=== PATIENT | male | born 1985 | race African-American/Black ===

== ENCOUNTER 2018-12-18 19:18 | Emergency (ER) | payer SELFPAY ==
[2018-12-18] MEDS ORDERED: ASPIRIN 81 MG TABLET, CHEWABLE PO ONE (19:57)
--- NOTE | 2018-12-18 20:01 | ER Document Report ---
ED Medical Screen (RME) - General Chief Complaint: Dizziness Stated Complaint: LIGHT HEADED/NECK PAIN Time Seen by Provider: 12/18/18 19:56 Primary Care Provider: GUANACO BENDER MD [Primary Care Provider] - Follow up as needed Mode of Arrival: Ambulatory Information source: Patient Notes: 32-year-old male presented to ED for complaint of headache chest pain. He states he was in [employer] about 7 PM when he had sudden burning in the neck that went around to his left jaw became very anxious sweaty dizzy had chest pain. He states he felt like he had to get outside right then. He got outside and was able to get himself home. He states he sat down and tried to rest relax and then he had a sudden severe headache, and so he came to the emergency room. He states he only has a headache at this time. He states he is never had an episode that happened like it did tonight. He does have a history of high blood pressure. He states he drinks on the weekends no cigarettes and no illicit drugs. I have greeted and performed a rapid initial assessment of this patient. A comprehensive ED assessment and evaluation of the patient, analysis of test results and completion of medical decision making process will be conducted by an additional ED providers. - Related Data Allergies/Adverse Reactions: No Known Allergies Allergy (Unverified 02/18/11 16:19) Physical Exam - Vital signs Vitals: Temp Pulse Resp BP Pulse Ox 98.2 F 83 18 179/123 H 98 12/18/18 19:32 12/18/18 19:32 12/18/18 19:32 12/18/18 19:32 12/18/18 19:32 Course - Vital Signs Vital signs: Temp Pulse Resp BP Pulse Ox 98.2 F 83 18 179/123 H 98 12/18/18 19:32 12/18/18 19:32 12/18/18 19:32 12/18/18 19:32 12/18/18 19:32 Doctor's Discharge - Discharge Referrals: GUANACO BENDER MD [Primary Care Provider] - Follow up as needed
--- NOTE | 2018-12-18 20:41 | RADIOLOGY REPORT (SQ) ---
EXAM DESCRIPTION: XR CHEST 2 VIEWS COMPLETED DATE/TME: 12/18/2018 19:57 CLINICAL HISTORY: 32 years, Male, chest pain COMPARISON: EXAM DESCRIPTION: CLINICAL HISTORY: chest pain COMPARISON: None. FINDINGS: Two views of the chest are submitted. Cardiac silhouette appears normal. No focal parenchymal or pleural disease. No acute bony abnormality. There is no significant pulmonary vascular engorgement. IMPRESSION: No evidence of acute cardiopulmonary disease. NUMBER OF VIEWS: TECHNIQUE: LIMITATIONS: None. FINDINGS: IMPRESSION: copyright 2010 [employer]- All Rights Reserved
[2018-12-18 20:42] LABS: ABSOLUTE EOSINOPHILS # (AUTO) 0.1 10^3/uL (0.0-0.6); ABSOLUTE LYMPHOCYTES (AUTO) 2.7 10^3/uL (0.5-4.7); ABSOLUTE MONOCYTES (AUTO) 0.8 10^3/uL (0.1-1.4); ABSOLUTE NEUT (AUTO) 5.6 10^3/uL (1.7-8.2); BASOPHILS % (AUTO) 0.5 % (0-2); EOSINOPHILS % (AUTO) 1.4 % (0-6); HEMATOCRIT 45.9 % (37.9-51.0); LYMPHOCYTES % (AUTO) 29.3 % (13-45); MEAN CORPUSCULAR HEMOGLOBIN 29.5 pg (27.0-33.4); MEAN CORPUSCULAR HGB CONC 32.7 g/dL (32.0-36.0); MEAN CORPUSCULAR VOLUME 90 fl (80-97); MONOCYTES % (AUTO) 8.9 % (3-13); PLATELET COUNT 293 10^3/uL (150-450); RED CELL DISTRIBUTION WIDTH 14.8 % (11.5-14.0); SEGMENTED NEUTROPHILS % (AUTO) 59.9 % (42-78); TOTAL CELLS COUNTED % (AUTO) 100 %; WHITE BLOOD COUNT 9.4 10^3/uL (4.0-10.5)
[2018-12-18 20:50] LABS: INTERNATIONAL RATION (INR) 0.96; PROTHROMBIN TIME 12.8 SEC (11.4-15.4)
[2018-12-18 20:51] LABS: PARTIAL THROMBOPLASTIN TIME 30.9 SEC (23.5-35.8)
[2018-12-18] MEDS ORDERED: ACETAMINOPHEN 325 MG TABLET PO ONE (21:01)
[2018-12-18 21:04] LABS: ALBUMIN 4.7 g/dL (3.5-5.0); ALKALINE PHOSPHATASE 70 U/L (38-126); ANION GAP 13 (5-19); ASPARTATE AMINO TRANSFERASE 33 U/L (17-59); BILIRUBIN,DIRECT 0.1 mg/dL (0.0-0.4); BILIRUBIN,TOTAL 0.5 mg/dL (0.2-1.3); BLOOD UREA NITROGEN 17 mg/dL (7-20); CALCIUM 10.3 mg/dL (8.4-10.2); CARBON DIOXIDE 24 mmol/L (22-30); CHLORIDE 107 mmol/L (98-107); CREATINE KINASE 600 U/L (55-170); GLUCOSE 104 mg/dL (75-110); POTASSIUM 4.3 mmol/L (3.6-5.0); TOTAL PROTEIN 7.9 g/dL (6.3-8.2)
--- NOTE | 2018-12-18 21:15 | ER Document Report ---
ED General - General Chief Complaint: Chest Pain Stated Complaint: LIGHT HEADED/NECK PAIN Time Seen by Provider: 12/18/18 19:56 Primary Care Provider: GUANACO BENDER MD [ACTIVE STAFF] - Follow up as needed Mode of Arrival: Ambulatory Information source: Patient Notes: 32-year-old male with hypertension, hyperlipidemia, obesity presents after an episode of neck burning, palpitations, lightheadedness that occurred approximately 2 hours prior to arrival while shopping at [employer]. Patient states that he developed a burning sensation starting on the right side of his neck wrapping around to the left side. He then developed palpitations and intermittent sharp pain in his chest. Denies any associated shortness of breath, diaphoresis, nausea but does admit to feeling lightheaded. Denies prior similar symptoms. Does report a stress test within the last 2 years that he assumes to have been negative. Patient does smoke 2 to 3 cigarettes/day. TRAVEL OUTSIDE OF THE [place] IN LAST 30 DAYS: Yes - HPI Onset: This evening Onset/Duration: Sudden, Gone Quality of pain: Burning, Sharp Severity: Moderate Associated symptoms: Chest pain, Headache, Other - Neck pain, lightheadedness. denies: Fever, Nausea, Vomiting, Shortness of breath Exacerbated by: Denies Relieved by: Denies Similar symptoms previously: Yes Recently seen / treated by doctor: No - Related Data Allergies/Adverse Reactions: No Known Allergies Allergy (Unverified 02/18/11 16:19) Past Medical History - General Information source: Patient - Social History Smoking Status: Current Some Day Smoker Cigarette use (# per day): Yes - 2 Smoking Education Provided: Yes - Smoking cessation counseling was provided for 4 minutes at the bedside Frequency of alcohol use: Occasional Drug Abuse: None Lives with: Family Family History: Reviewed & Not Pertinent Patient has suicidal ideation: No Patient has homicidal ideation: No - Past Medical History Cardiac Medical History: Reports: Hx Hypercholesterolemia, Hx Hypertension Review of Systems - Review of Systems Notes: REVIEW OF SYSTEMS: CONSTITUTIONAL : Denies fever, chills, or sweats. Denies recent illness. Denies weight loss, recent hospitalizations. EENT: Denies visual changes, eye pain. Denies sore throat, oral lesions, difficulty swallowing. CARDIOVASCULAR: + chest pain. + palpitations. Denies lower extremity edema. RESPIRATORY: Denies cough. Denies shortness of breath, wheezing. GASTROINTESTINAL: Denies abdominal pain or distention. Denies nausea, vomiting, or diarrhea. Denies blood in vomitus, stools, or per rectum. Denies black, tarry stools. Denies constipation. GENITOURINARY: Denies difficulty urinating, painful urination, frequency, blood in urine, testicular pain or penile discharge. MUSCULOSKELETAL: Denies back or neck pain or stiffness. Denies joint pain or swelling. SKIN: Denies rash, lesions or sores. HEMATOLOGIC : Denies easy bruising or bleeding. LYMPHATIC: Denies swollen glands. NEUROLOGICAL: Denies confusion or altered mental status. Denies loss of consciousness. Denies dizziness . Denies weakness or paralysis. Denies problems difficulty with ambulation, slurred speech. Denies sensory loss, numbness, or tingling. Denies seizures. PSYCHIATRIC: Denies anxiety or stress. Denies depression, suicidal ideation, or Physical Exam - Vital signs Vitals: Temp Pulse Resp BP Pulse Ox 98.2 F 83 18 179/123 H 98 12/18/18 19:32 12/18/18 19:32 12/18/18 19:32 12/18/18 19:32 12/18/18 19:32 - Notes Notes: PHYSICAL EXAMINATION: GENERAL: Well-appearing, well-nourished and in no acute distress. HEAD: Atraumatic, normocephalic. EYES: Pupils equal round and reactive to light, extraocular movements intact, sclera anicteric, conjunctiva are normal. ENT: Nares patent, oropharynx clear without exudates. Moist mucous membranes. NECK: Normal range of motion, supple without lymphadenopathy LUNGS: Breath sounds clear to auscultation bilaterally and equal. No wheezes rales or rhonchi. HEART: Regular rate and rhythm without murmurs ABDOMEN: Soft, nontender, nondistended abdomen. No guarding, no rebound. No masses appreciated. Musculoskeletal: Normal range of motion, no pitting or edema. No cyanosis. NEUROLOGICAL: Cranial nerves grossly intact. Normal speech, normal gait. Normal sensory, motor exams PSYCH: Normal mood, normal affect. SKIN: Warm, Dry, normal turgor, no rashes or lesions noted. Course - Re-evaluation Re-evalutation: 12/18/18 21:27 Laboratory 12/18/18 12/18/18 12/18/18 20:25 20:25 20:25 WBC 9.4 RBC 5.10 Hgb 15.0 Hct 45.9 MCV 90 MCH 29.5 MCHC 32.7 RDW 14.8 H Plt Count 293 Lymph % (Auto) 29.3 [place] % (Auto) 8.9 Eos % (Auto) 1.4 Baso % (Auto) 0.5 Absolute Neuts (auto) 5.6 Absolute Lymphs (auto) 2.7 Absolute Monos (auto) 0.8 Absolute Eos (auto) 0.1 Absolute Basos (auto) 0.0 Seg Neutrophils % 59.9 PT 12.8 INR 0.96 APTT 30.9 Sodium 144.1 Potassium 4.3 Chloride 107 Carbon Dioxide 24 Anion Gap 13 BUN 17 Creatinine 1.00 Est GFR ( Amer) > 60 Est GFR (MDRD) Non-Af > 60 Glucose 104 Calcium 10.3 H Magnesium 1.7 Total Bilirubin 0.5 Direct Bilirubin 0.1 Neonat Total Bilirubin Not Reportable Neonat Direct Bilirubin Not Reportable Neonat Indirect Bili Not Reportable AST 33 ALT 38 Alkaline Phosphatase 70 Creatine Kinase 600 H CK-MB (CK-2) Troponin I NT-Pro-B Natriuret Pep Total Protein 7.9 Albumin 4.7 12/18/18 20:25 WBC RBC Hgb Hct MCV MCH MCHC RDW Plt Count Lymph % (Auto) [place] % (Auto) Eos % (Auto) Baso % (Auto) Absolute Neuts (auto) Absolute Lymphs (auto) Absolute Monos (auto) Absolute Eos (auto) Absolute Basos (auto) Seg Neutrophils % PT INR APTT Sodium Potassium Chloride Carbon Dioxide Anion Gap BUN Creatinine Est GFR ( Amer) Est GFR (MDRD) Non-Af Glucose Calcium Magnesium Total Bilirubin Direct Bilirubin Neonat Total Bilirubin Neonat Direct Bilirubin Neonat Indirect Bili AST ALT Alkaline Phosphatase Creatine Kinase CK-MB (CK-2) 1.50 Troponin I < 0.012 NT-Pro-B Natriuret Pep < 11 Total Protein Albumin Chest X-Ray 12/18/18 19:57 IMPRESSION: No evidence of acute cardiopulmonary disease. NUMBER OF VIEWS: TECHNIQUE: LIMITATIONS: None. FINDINGS: IMPRESSION: copyright 2010 [employer]- All Rights Reserved Temp Pulse Resp BP Pulse Ox 98.2 F 83 23 H 176/103 H 97 12/18/18 19:32 12/18/18 19:32 12/18/18 20:31 12/18/18 21:01 12/18/18 21:01 12/19/18 00:01 Presentation of chest pain in an otherwise well appearing patient. Low clinical suspicion for ACS given clinical history, exam, EKG without ST elevations or depressions, and negative initial troponin. HEART score less than or equal to 3. PE also seems unlikely given clinical history, absence of tachycardia or dyspnea. Patient is PERC criteria negative. CXR without evidence of pneumothorax or pneumonia. No widened mediastinum. Aortic dissection also seems unlikely given history, symmetric pulses, CXR, and vitals. HEART Score: History-0 ECG-0 Age-0 Risk Factors-2 Troponin-0 Total: 2 Chest pain in a patient without evidence of cardiac or other serious etiology on workup today. I discussed with patient that, based on their age, risk factors and emergency department testing today, the likelihood that their symptoms are related to a heart attack is very low (estimated risk of heart attack or over the next 30 days of less than 1%). The patient demonstrates decision making capacity and has verbalized an understanding of these risks to me. Based on this, the patient has chosen to follow-up as an outpatient. Usual chest pain return precautions reviewed. The patient states understanding and agreement with this plan. - Vital Signs Vital signs: Temp Pulse Resp BP Pulse Ox 98.2 F 83 20 154/96 H 98 12/18/18 19:32 12/18/18 19:32 12/18/18 23:31 12/18/18 23:31 12/18/18 23:31 - Laboratory Result Diagrams: 12/18/18 20:25 12/18/18 20:25 Laboratory results interpreted by me: 12/18/18 12/18/18 20:25 20:25 RDW 14.8 H Calcium 10.3 H Creatine Kinase 600 H - Diagnostic Test Radiology reviewed: Image reviewed, Reports reviewed - EKG Interpretation by Me EKG shows normal: Sinus rhythm Rate: Normal Rhythm: NSR When compared to previous EKG there are: Previous EKG unavailable Discharge - Discharge Clinical Impression: Neck pain Chest pain Qualifiers: Chest pain type: unspecified Qualified Code(s): R07.9 - Chest pain, unspecified Condition: Good Disposition: HOME, SELF-CARE Instructions: Chest Pain of Unclear Cause ([facility]), Dizziness ([facility]) Additional Instructions: You were seen today for chest pain. The exact cause of your pain is unclear. However, based on your cardiac enzyme testing, chest x-ray, and EKG it does not appear that it is from an immediately life-threatening cause at this time. Although your testing here is normal is critical that you follow-up with your primary care physician for continued evaluation of this chest pain and possible stress testing. I recommended you see your physician within the next 24-48 hours to be evaluated for consideration of a stress test. Please return to emergency department immediately if you have worsening of your chest pain, shortness of breath, vomiting, become unable to exert yourself due to pain or difficulty breathing, you pass out, or have any pain that radiates into your arms, jaw, or back. Please also return if you have any additional symptoms that are concerning to you. Regarding Blood Pressure: Your blood pressure was noted to be greater than 120/80 at least once in the emergency room today. It is recommended that you follow-up with her primary care physician in the next week for repeat blood pressure check. The Centers for Medicare and Medicaid Services has specific recommendations regarding a person's blood pressure. There are several lifestyle modifications that are recommended in order to help lower your blood pressure. These include: Quitting smoking if you smoke. Reducing the amount of sodium in your diet. Getting regular exercise Limiting alcohol to no more than 2 drinks a day for men and one drink a day for women. Eating a healthy diet, including more fruits and vegetables, low fat dairy products, less saturated and total fat. Losing weight if you are overweight. FOLLOW-UP: Call your doctor's office and let them know your blood pressure was elevated and you were advised to get your blood pressure checked in the above time-line. If you are unable to get into your doctor's office in this time period, you can follow-up with a new physician (I have left the numbers below for a few primary care doctors affiliated with this [place] [facility]) or return to the ER. PRIMARY CARE PHYSICIANS: Dr. Geovani Pate [address], [place] [address] [phone] Dr Quintana Address: [address] , [place] [address] Dr Gal[address] Address: [address] [place] [address] Forms: Elevated Blood Pressure, Smoking Cessation Education, Return to Work Referrals: GUANACO BENDER MD [ACTIVE STAFF] - Follow up tomorrow
[2018-12-18 21:18] LABS: NT PRO BNP < 11 pg/mL (<125); TROPONIN I < 0.012 ng/mL
[2018-12-18] MEDS: NORMAL SALINE 1000 ML 1,000 ML IV PRN ×2 (21:25→22:26)
[2018-12-18] MEDS ORDERED: CLONIDINE HCL 0.2 MG TABLET PO ONE (21:27)
[2018-12-19 00:14] VITALS: BP 156/94
--- NOTE | 2018-12-19 02:18 | EKG REPORT ---
SEVERITY:- ABNORMAL ECG - SINUS ARRHYTHMIA, RATE 62-93 NONSPECIFIC T ABNORMALITIES, INFERIOR LEADS : Confirmed by: Krystal Aguirre 19-Dec-2018 02:17:42
--- NOTE | 2018-12-19 02:18 | EKG REPORT ---
SEVERITY:- BORDERLINE ECG - SINUS RHYTHM BORDERLINE T ABNORMALITIES, DIFFUSE LEADS BORDERLINE PROLONGED QT INTERVAL : Confirmed by: Krystal Aguirre 19-Dec-2018 02:17:33
== END 2018-12-19 00:14 | disposition home or self-care (01) ==
LOC: ER 19:18
DX: M54.2 Cervicalgia (principal); R07.9 Chest pain, unspecified; R51 Headache; F17.210 Nicotine dependence, cigarettes, uncomplicated; E78.00 Pure hypercholesterolemia, unspecified; I10 Essential (primary) hypertension
CPT/HCPCS: 93005; 36415; 82553; 82550; 83735; 84443; 85025; 85610; 85730; 80053; 84484; 83880; 71046; 93010; J7030; 96360; 96361; 99284

== ENCOUNTER 2019-02-25 17:24 | Emergency (ER) | payer SELFPAY ==
[2019-02-25] MEDS ORDERED: LIDOCAINE 2% VISCOUS SOLN 20 ML UDCUP PO ONE (17:55)
[2019-02-25] MEDS ORDERED: AMLODIPINE BESYLATE 10 MG TABLET PO ONE (17:58)
[2019-02-25 18:00] VITALS: BP 192/122
--- NOTE | 2019-02-25 18:00 | ER Document Report ---
HPI - HPI Time Seen by Provider: 02/25/19 17:54 Pain Level: 5 Notes: Patient is a 33-year-old male with history of hypertension (he did not take his medicines today) who presents complaining of left lower dental pain to #18 for the past month, but increased today. He has not noticed any obvious abscess or purulent discharge. Patient states that he is still able to eat and drink, but does have a decreased p.o. intake due to the pain. He has tried some [id number] meds with minimal relief. No other concerns or complaints. Denies any headache, fever, head injury, neck pain, hoarseness, drooling, URI, sore throat, chest pain, palpitations, syncope, cough, shortness of breath, wheeze, dyspnea, abdominal pain, nausea/vomiting/diarrhea, urinary retention, dysuria, hematuria, or rash. - ROS Systems Reviewed and Negative: Yes All other systems reviewed and negative - REPRODUCTIVE Reproductive: DENIES: : Past Medical History - Social History Smoking Status: Never Smoker Chew tobacco use (# tins/day): No Frequency of alcohol use: Social Drug Abuse: None Family History: Reviewed & Not Pertinent Patient has suicidal ideation: No Patient has homicidal ideation: No - Past Medical History Cardiac Medical History: Reports: Hx Hypercholesterolemia, Hx Hypertension Vertical Provider Document - CONSTITUTIONAL Agree With Documented VS: Yes Notes: PHYSICAL EXAMINATION: GENERAL: Well-appearing, well-nourished and in no acute distress. HEAD: Atraumatic, normocephalic. EYES: Pupils equal round and reactive to light, extraocular movements intact, sclera anicteric, conjunctiva are normal. ENT: Nares patent and without discharge. oropharynx clear without exudates. No tonsilar hypertrophy or erythema. Moist mucous membranes. No sinus tenderness. Uvula midline. No palatine shift. No tongue protrusion. No respiratory compromise. Mouth: Poor dentition. + mild decay and mild gingivitis. No obvious abscess or discharge noted. No facial swelling. + tenderness to tooth #18. NECK: Normal range of motion, supple without lymphadenopathy. No rigidity/meningismus. LUNGS: Breath sounds clear to auscultation bilaterally and equal. No wheezes rales or rhonchi. HEART: Regular rate and rhythm without murmurs, rubs, gallops. NEUROLOGICAL: Cranial nerves grossly intact. Normal speech, normal gait. PSYCH: Normal mood, normal affect. SKIN: Warm, Dry, normal turgor, no rashes or lesions noted. - INFECTION CONTROL TRAVEL OUTSIDE OF THE [place] IN LAST 30 DAYS: No Course - Re-evaluation Re-evalutation: 02/25/19 17:59 Patient is an afebrile, well-hydrated, 33-year-old male who presents to the ED with dental pain, suspect nerve root etiology versus infection. Vitals are acceptable. PE is otherwise unremarkable. No I&D, labs, or imaging warranted at this time based on H&P. Viscous lidocaine dispensed today. I will send him home with a prescription for penicillin. I did give him a dose of his amlodipine today. He otherwise does not have any chest pain, shortness of breath, or dyspnea on exertion. He has not had any headache nor any dysuria. Low suspicion for any meningitis, sepsis, peritonsillar/pharyngeal abscess, respiratory compromise, John's, temporal arteritis, or other emergent systemic condition at this time. Patient is aware this condition can change from initial presentation and he needs to monitor symptoms closely. Conservative measures otherwise for symptoms. Call to schedule an appointment with a dentist for further evaluation and management. Recheck with your PCM this week as well. Return to the ED with any worsening/concerning symptoms otherwise as reviewed in discharge. Patient is in agreement. Discharge - Discharge Clinical Impression: Pain, dental Condition: Stable Disposition: HOME, SELF-CARE Instructions: Penicillin V K ([facility]), Toothache ([facility]) Additional Instructions: Daniel and floss twice daily Maintain fluid intake Take antibiotics as directed Mouthwash, salt water gargles, peroxide rinse as needed Tylenol/ibuprofen as needed Recheck with PCM this week Call and schedule an appointment with your dentist for further evaluation Return to the ED with any worsening symptoms and/or development of fever, headache, facial swelling, swelling of lips/tongue/throat, trouble swallowing, drooling, hoarseness, neck pain/stiffness, chest pain, palpitations, syncope, shortness of breath, trouble breathing, abdominal pain, n/v/d, numbness/tingling, or other worsening symptoms that are concerning to you. Prescriptions: Penicillin V Potassium [Penicillin Vk 250 mg Tablet] 500 mg PO BID #40 tablet Forms: Elevated Blood Pressure Referrals: [facility] [Provider Group] - Follow up as needed
== END 2019-02-25 18:34 | disposition home or self-care (01) ==
LOC: ER 17:24
DX: K08.89 Other specified disorders of teeth and supporting structures (principal); R63.0 Anorexia; I10 Essential (primary) hypertension
CPT/HCPCS: 99282; J3490

== ENCOUNTER → 2019-03-30 | Outpatient (CLI) | payer OTHER ==
[2019-03-30 11:30] LABS: ABSOLUTE BASOPHILS # (AUTO) 0.1 10^3/uL (0.0-0.2); ABSOLUTE EOSINOPHILS # (AUTO) 0.1 10^3/uL (0.0-0.6); ABSOLUTE LYMPHOCYTES (AUTO) 2.4 10^3/uL (0.5-4.7); ABSOLUTE MONOCYTES (AUTO) 0.5 10^3/uL (0.1-1.4); ABSOLUTE NEUT (AUTO) 3.8 10^3/uL (1.7-8.2); BASOPHILS % (AUTO) 0.8 % (0-2); EOSINOPHILS % (AUTO) 1.4 % (0-6); HEMATOCRIT 43.2 % (37.9-51.0); HEMOGLOBIN 14.3 g/dL (13.5-17.0); LYMPHOCYTES % (AUTO) 35.5 % (13-45); MEAN CORPUSCULAR HEMOGLOBIN 29.8 pg (27.0-33.4); MEAN CORPUSCULAR VOLUME 90 fl (80-97); MONOCYTES % (AUTO) 7.3 % (3-13); PLATELET COUNT 249 10^3/uL (150-450); RED BLOOD COUNT 4.79 10^6/uL (4.35-5.55); RED CELL DISTRIBUTION WIDTH 14.2 % (11.5-14.0); TOTAL CELLS COUNTED % (AUTO) 100 %; WHITE BLOOD COUNT 6.9 10^3/uL (4.0-10.5)
[2019-03-30 11:55] LABS: ALBUMIN 4.5 g/dL (3.5-5.0); ALKALINE PHOSPHATASE 62 U/L (38-126); ANION GAP 10 (5-19); ASPARTATE AMINO TRANSFERASE 46 U/L (17-59); BILIRUBIN,TOTAL 0.4 mg/dL (0.2-1.3); BLOOD UREA NITROGEN 12 mg/dL (7-20); CALCIUM 9.9 mg/dL (8.4-10.2); CARBON DIOXIDE 28 mmol/L (22-30); CHLORIDE 104 mmol/L (98-107); CHOLESTEROL 182.85 mg/dL (0-200); GLUCOSE 136 mg/dL (75-110); POTASSIUM 4.4 mmol/L (3.6-5.0); TOTAL PROTEIN 7.4 g/dL (6.3-8.2); TRIGLYCERIDES 178 mg/dL (<150)
[2019-03-30 12:07] LABS: DIRECT LDL 133 mg/dL (<100)
[2019-03-30 12:08] LABS: VLDL CHOLESTEROL 35.6 mg/dL (10-31)
== END ==
LOC: CCC 10:56
DX: Z00.00 Encounter for general adult medical examination without abnormal findings (principal)
CPT/HCPCS: 36415; 80053; 80061; 83036; 84443; 85025